=== PATIENT | female | born 1955 | race Caucasian/White ===

== ENCOUNTER 2016-12-14 17:50 | Emergency (ER) | payer OTHER ==
[2016-12-14 18:50] VITALS: BP 156/80
[2016-12-14] MEDS ORDERED: Ondansetron ODT TAB* 4 MG PO ONE (19:43)
[2016-12-14] MEDS ORDERED: NS 0.9% 1000 ML* 1,000 ML IV ONE (19:44)
[2016-12-14] MEDS ORDERED: HYDROcodone/ACETAMIN 5-325 MG* 1 TAB PO ONE (20:17)
--- NOTE | 2016-12-14 21:25 | UC ---
monica Luciano Timothy, scribed for Keysha Brown MD on 12/14/16 at 1903 . FLU HPI - HPI Summary HPI Summary: Sapna Dunham is a 61 yo female presenting to [facility] with vomiting and loose stool 3-4x since this morning, as well as subjective fever, myalgia, and temporal and frontal DOWNS. She states that DOWNS is not a new occurrence, and that she normally self-medicates with tylenol with codeine but has been unable to keep anything down. She states her had a "stomach bug" 12/09/16 and she has identical symptoms. She is requesting fluids. Pt has a right arm PICC line for long-term ABx Tx for Lyme disease. She takes prescription probiotics. She has a Hx of thyroid disease, dysautonomia, and asthma. She is on Florinef for the dysautonomia and is concerned that her electrolytes could be low too. - History of Current Complaint Stated Complaint: VOMITING Time Seen by Provider: 12/14/16 18:55 Hx Obtained From: Patient ?: No Onset/Duration: Sudden Onset, Lasting Hours, Still Present Severity Currently: Moderate Severity Initially: Moderate Associated Signs & Symptoms: Positive: Fever - subjective, Myalgia, Headache, Vomiting, Diarrhea Related Hx: Possible Flu/Infectious Exposure - Allergy/Home Medications Allergies/Adverse Reactions: Allergies Allergy/AdvReac Type Severity Reaction Status Date / Time Aspirin Allergy Mild Rash Verified 12/14/16 18:53 Ibuprofen Allergy Mild Rash Verified 12/14/16 18:53 Sulfa Drugs Allergy Mild Rash Verified 12/14/16 18:53 animals Allergy Intermediate Difficulty Uncoded 12/14/16 18:53 Breathing Home Medications: Home Medications Fludrocortisone Acetate TAB* [Florinef TAB*] 0.1 mg PO DAILY 12/14/16 [History Confirmed 12/14/16] PMH/Surg Hx/FS Hx/Imm Hx Previously Healthy: No - Lyme disease on daily ceftriaxone 2gms (did not take today) and azithro Endocrine History Of: Reports: Thyroid Disease Denies: Diabetes Cardiovascular History Of: Denies: Hypertension, Pacemaker/ICD Respiratory History Of: Reports: Asthma GI/ History Of: Denies: Renal Disease Cancer History Of: Denies: Breast Cancer - Surgical History Surgical History: Yes Surgery Procedure, Year, and Place: BREAST BIOPSY 15 YRS AGO,LEFT, - [facility]IGN. RT BREAST BIOPSY 02/2013 [facility] [place] - B[place]IGN. D&C - Family History Known Family History: Positive: Cardiac Disease, Diabetes, Other - lymphoma - mother - Social History Lives: With Family Alcohol Use: None Substance Use Type: None Smoking Status (MU): Never Smoked Tobacco - Immunization History Most Recent Tetanus Shot: 10 + yrs ago Review of Systems Constitutional: Fever - subjective Skin: Negative Eyes: Photophobia ENT: Negative Respiratory: Negative Cardiovascular: Negative Gastrointestinal: Vomiting, Diarrhea Genitourinary: Negative Motor: Negative Neurovascular: Negative Musculoskeletal: Negative Neurological: Headache Psychological: Negative All Other Systems Reviewed And Are Negative: Yes Physical Exam Triage Information Reviewed: Yes Appearance: No Pain Distress, Well-Nourished, Ill-Appearing Vital Signs: Initial Vital Signs Temp 99.2 F 12/14/16 18:47 Pulse 88 12/14/16 18:47 Resp 20 12/14/16 18:47 BP 156/80 12/14/16 18:47 Pulse Ox 98 12/14/16 18:47 Vital Signs Reviewed: Yes Eyes: Positive: Conjunctiva Clear ENT: Positive: Hearing grossly normal. Negative: Muffled/hoarse voice Neck: Positive: Supple, Nontender, No Lymphadenopathy Respiratory: Positive: Lungs clear, Normal breath sounds, No respiratory distress Cardiovascular: Positive: RRR, No Murmur, Pulses Normal, Brisk Capillary Refill Abdomen Description: Positive: Nontender, No Organomegaly, Soft. Negative: CVA Tenderness (R), CVA Tenderness (L), Distended, Guarding, McBurney's Point Tenderness, Peritoneal Signs, Pulsatile Mass Bowel Sounds: Positive: Present Musculoskeletal: Positive: Strength Intact, ROM Intact Neurological: Positive: Alert, Muscle Tone Normal Psychological Exam: Normal Skin Exam: Normal Re-Evaluation - Re-Evaluation First Eval Re-Evaluation Time: 19:42 Change: Unchanged Comment: Pt is still uncomfortable, but agreeable to peripheral line insertion. Second Eval Re-Evaluation Time: 20:35 Change: Improved Comment: Pt's is now in room. Pt is no longer nauseous, but still has a DOWNS. Third Eval Re-Evaluation Time: 21:02 Change: Improved Comment: Pt is feeling much better, her DOWNS is improving. Flu Course/Dx - Course Course Of Treatment: Sapna Dunham is a 61 yo female presenting to [facility] with fever, myalgia, DOWNS, vomiting, and diarrhea since this AM. She has a Hx of dysautonomia and Lyme disease currently on IV abx. After evaluation, blood will be drawn for lab work, she will be given one liter IVNS and she will be discharged home with instructions to follow up with Dr. Ross, whom she has seen in the past. Pt is advised that if the diarrhea continues to make sure she is checked for C difficile colitis. Pt does not have any respiratory symptoms so this does not present like influenza A or B, and pt has had her flu shot. - Differential Dx/Diagnosis Provider Diagnoses: gastroenteritis, mild dehydration - Physician Notifications Discussed Patient Care With: 1940 - Daya Duong ([facility]) - Discussed Pt condition with Director Ad. No credentialing @ [facility] necessary for Picc line use. Pt will have peripheral line inserted. Discharge - Discharge Plan Condition: Stable Disposition: HOME Patient Education Materials: Dehydration (ED), Gastroenteritis (ED) Referrals: Bob Ross MD [Primary Care Provider] - 2 Days Additional Instructions: Dr. Brown gave you a liter of normal saline IV through a peripheral IV in your left arm (not your PICC line). She also courtney a CBC and CMP and the results will be available tomorrow. The ER will call you if there is a critical value on the labs. Dr. Brown also gave you zofran 8mg ODT for nausea at 7:47pm and hydrocodone at 8:24pm. Follow up with Dr. Ross regarding your visit to urgent care within two days. Return to urgent care with any new or recurring symptoms. The documentation as recorded by the monica moser Timothy accurately reflects the service I personally performed and the decisions made by , Keysha Brown MD.
[2016-12-15 10:18] LABS: Hematocrit 39 % (35-47); Hemoglobin 12.8 g/dl (12.0-16.0); Mean Corpuscular HGB Conc 33 g/dl (31-36); Mean Corpuscular Hemoglobin 29 pg (27-31); Mean Corpuscular Volume 86 fL (80-97); Mean Platelet Volume 9 um3 (7.4-10.4); Red Blood Count 4.49 10^6/ul (4.0-5.4); Red Cell Distribution Width 14 % (10.5-15); White Blood Count 7.5 10^3/ul (3.5-10.8)
[2016-12-15 10:43] LABS: Albumin 3.9 g/dL (3.2-5.2); BUN/Creatinine Ratio 14.3 (8-20); Calcium 8.9 mg/dL (8.6-10.3); EGFR African American 110.1 (>60); EGFR Non-African American 85.6 (>60); Globulin 1.9 g/dL (2-4); Total Bilirubin 0.8 mg/dL (0.2-1.0); Total Protein 5.8 g/dL (6.4-8.9)
== END 2016-12-14 21:11 | disposition home or self-care (01) ==
LOC: UCEAST 17:50
DX: K52.9 Noninfective gastroenteritis and colitis, unspecified (principal); E86.0 Dehydration; Z88.6 Allergy status to analgesic agent; Z88.2 Allergy status to sulfonamides; R50.9 Fever, unspecified
CPT/HCPCS: 36415; 80053; 81002; 85025; 87086; 96360; 99212; A9270-GY; G0463

== ENCOUNTER 2017-02-21 22:58 | Emergency (ER) | payer OTHER ==
[2017-02-22 00:32] LABS: Hematocrit 37 % (35-47); Hemoglobin 12.2 g/dl (12.0-16.0); Mean Corpuscular HGB Conc 33 g/dl (31-36); Mean Corpuscular Hemoglobin 28 pg (27-31); Mean Corpuscular Volume 84 fL (80-97); Mean Platelet Volume 9 um3 (7.4-10.4); Red Blood Count 4.35 10^6/ul (4.0-5.4); Red Cell Distribution Width 15 % (10.5-15); White Blood Count 8.2 10^3/ul (3.5-10.8)
--- NOTE | 2017-02-22 00:33 | ED ---
Mod[place] Luciano Billy, scribed for Judah Munoz MD on 02/22/17 at 0003 . HPI Chest Pain - HPI Summary HPI Summary: Patient is a 61 y/o female coming to [facility] with intermittent midsternal chest pain since yesterday. Severity 2/10. She is unable to specifically describe the character of her pain. Nothing makes symptoms better or worse. Patient has a PICC in [facility] to treat Lyme disease. - History of Current Complaint Chief Complaint: EDChestPainROMI Time Seen by Provider: 02/21/17 23:45 Hx Obtained From: Patient Onset/Duration: Started Days Ago, Still Present Timing: Intermittent Initial Severity: Moderate Current Severity: Moderate Pain Intensity: 2 Pain Scale Used: 0-10 Numeric Chest Pain Location: Mid Sternal Chest Pain Radiates: No Aggravating Factor(s): Nothing Alleviating Factor(s): Nothing Associated Signs and Symptoms: Positive: Chest Pain. Negative: Fever - Allergy/Home Medications Allergies/Adverse Reactions: Allergies Allergy/AdvReac Type Severity Reaction Status Date / Time Aspirin Allergy Mild Rash Verified 02/21/17 23:04 Ibuprofen Allergy Mild Rash Verified 02/21/17 23:04 Sulfa Drugs Allergy Mild Rash Verified 02/21/17 23:04 animals Allergy Intermediate Difficulty Uncoded 02/21/17 23:04 Breathing PMH/Surg Hx/FS Hx/Imm Hx Endocrine/Hematology History: Reports: Hx Thyroid Disease Denies: Hx Diabetes Cardiovascular History: Denies: Hx Hypertension, Hx Pacemaker/ICD Respiratory History: Reports: Hx Asthma History: Denies: Hx Dialysis, Hx Renal Disease Sensory History: Denies: Hx Hearing Aid Psychiatric History: Denies: Hx Panic Disorder - Cancer History Hx Chemotherapy: No Hx Radiation Therapy: No - Surgical History Surgery Procedure, Year, and Place: BREAST BIOPSY 15 YRS AGO,LEFT, - [place]IGN. RT BREAST [place] 02/[place] [facility] [place] D&C Infectious Disease History: No Infectious Disease History: Denies: Traveled Outside the [place] in Last 30 Days - Family History Known Family History: Positive: Cardiac Disease, Diabetes, Other - lymphoma - mother - Social History Alcohol Use: None Substance Use Type: Reports: None Smoking Status (MU): Never Smoked Tobacco Review of Systems Negative: Fever Positive: Chest Pain All Other Systems Reviewed And Are Negative: Yes Physical Exam Triage Information Reviewed: Yes Vital Signs On Initial Exam: Initial Vitals Temp Pulse Resp BP Pulse Ox 97.3 F 64 15 155/88 99 02/21/17 23:00 02/21/17 23:00 02/21/17 23:00 02/21/17 23:00 02/21/17 23:00 Vital Signs Reviewed: Yes Appearance: Positive: No Pain Distress, Thin Skin: Positive: Warm Head/Face: Positive: Normal Head/Face Inspection Eyes: Positive: VÍCTOR ENT: Positive: Hearing grossly normal Neck: Positive: Supple Respiratory/Lung Sounds: Positive: Breath Sounds Present Cardiovascular: Positive: RRR Abdomen Description: Positive: Nontender, Soft Bowel Sounds: Positive: Present Neurological: Positive: Sensory/Motor Intact, Alert, Oriented to Person Place, Time Diagnostics - Vital Signs Vital Signs Temp Pulse Resp BP Pulse Ox 02/21/17 23:00 97.3 F 64 15 155/88 99 - Laboratory Result Diagrams: 02/22/17 00:10 02/22/17 00:10 Lab Statement: Any lab studies that have been ordered have been reviewed, and results considered in the medical decision making process. - Radiology CXR Xray Interpretation: No Acute Changes Radiology Interpretation Completed By: ED Physician - EKG 2311 EKG Interpretation: sinus bradycardia 57 bpm, no ST elevations Re-Evaluation - Re-Evaluation First Eval Change: Improved - results d/w pt Chest Pain Course/Dx - Diagnoses Provider Diagnoses: Chest pain Discharge - Discharge Plan Condition: Stable Disposition: HOME Patient Education Materials: Chest Pain (ED) Referrals: Bob Ross MD [Primary Care Provider] - The documentation as recorded by the Modesto moser Billy accurately reflects the service I personally performed and the decisions made by , Judah Munoz MD.
[2017-02-22 00:43] LABS: Albumin 4.1 g/dL (3.2-5.2); BUN/Creatinine Ratio 22.5 (8-20); Calcium 9.2 mg/dL (8.6-10.3); EGFR African American 108.4 (>60); EGFR Non-African American 84.3 (>60); Globulin 2.5 g/dL (2-4); Potassium 3.4 mmol/L (3.5-5.0); Total Bilirubin 0.3 mg/dL (0.2-1.0); Total Protein 6.6 g/dL (6.4-8.9)
[2017-02-22 01:41] VITALS: BP 147/89
--- NOTE | 2017-02-22 07:41 | RAD ---
INDICATION: Chest pain, status post PICC placement. COMPARISON: There are no prior studies available for comparison. TECHNIQUE: Dual-energy PA and lateral views of the chest were obtained. FINDINGS: The heart is within normal limits in size. Mediastinal and hilar contours appear within normal limits. There is a PICC present entering on the right side. The catheter tip projects over the region of the superior vena cava. The lungs are clear. No pleural effusion is present. IMPRESSION: NO EVIDENCE FOR ACTIVE CARDIOPULMONARY DISEASE.
== END 2017-02-22 01:40 | disposition home or self-care (01) ==
LOC: ED 22:58
DX: R07.9 Chest pain, unspecified (principal)
CPT/HCPCS: 36415; 71020; 80053; 85025; 85379; 93005; 99282

== ENCOUNTER 2018-05-29 02:43 | Emergency (ER) | payer MEDICARE, OTHER ==
[2018-05-29] MEDS ORDERED: Ondansetron INJ* 2 MG/ML VIAL IV ONE (03:03)
[2018-05-29] MEDS ORDERED: NS 0.9% 1000 ML* 1,000 ML IV ONE ×2 (03:03→06:33)
--- OUTSIDE RECORDS SUMMARY | 2018-05-29 03:03 | XMS REPORT ---
:1955 External Reference #:[id number] 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 Bob Ross MD Primary Care Physician Unavailable Payers Type Date Identification Numbers Payment Provider Subscriber Medicare Primary Policy Number: [id number] Medicare Sapna Dunham PayID: [id number] [address] [place] [address] Commercial Policy Number: [id number] [employer] Sapna Dunham Group Number: [id number] [address] PayID: [id number] [place] [address] [place] Part [place] Expires: 2017 Policy Number: [employer] Sapna Dunham [id number] Group Number: [id number] [address] Group Name: [place] [address] PayID: [id number] Problems Date Description Provider Status Onset: 02/17/2016 Autonomic dysreflexia Mary Beth Avendaño M.D. Active Onset: 02/17/2016 Spinal stenosis Mary Beth Avendaño M.D. Active Onset: 02/17/2016 Dyspnea Mary Beth Avendaño M.D. Active Onset: 02/17/2016 Chest pain Mary Beth Avendaño M.D. Active Onset: 07/21/2016 Supraventricular premature beats Mary Beth Avendaño M.D. Active Onset: 02/12/2017 Palpitations Mary Beth Avendaño M.D. 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 Cigarette Use Never Smoked Cigarettes ETOH Use Occasionally consumes alcohol Smoking Patient has never smoked Recreational Drug Use Formerly used Marijuana sporadically Daily Caffeine Consumes on average 3 cups of hot tea per day Daily Caffeine consumes chocolate occasionally Exercise Type/Frequency Exercises rarely Allergies, Adverse Reactions, Alerts Date Description Reaction Status Severity Comments 02/17/2016 Ibuprofen active rash 02/17/2016 Synthroid active rash 02/17/2016 Vicodin active rash 02/17/2016 Eggs or Egg-derived active rash Products 10/16/2016 Lactose (Intolerance) diarrhea active 03/25/2017 Atavaquone active 03/25/2017 Advil active 04/22/2017 Peppermint Oil Urticaria active massage 04/08/17 per patient 07/16/2017 Keshav rash active Medications Medication Date Status Form Strength Qnty SIG Indications Ordering Provider Edmundo 10 07/16 Active Tablets ER 10Meq 180ta 2 tablets bs by mouth [place], every day M.D. Mobic 03/25 Active Tablets 7.5mg 30tab 1 by Carolyn s mouth Harris, every day M.D. (Not Taking) Compression 03/26 Active Misc 1Pair thigh G90.4 high [place], closed M.D. toe medium compressi on 20-30mmHg Tylenol With Active Tablets 300-30mg 1 tablet Unknown Codeine #3 /0000 by mouth every 8 hours as needed Fluoxetine HCL Active Capsules 10mg 2 Unknown /0000 capsules po daily PM ( increase 2 months ago) Proventil HFA Active Aerosol 108(90Bas 2 puffs Unknown 0000 e) by mouth mcg/Act every 4 hours as needed Fludrocortisone Active Tablets 0.1mg 60tab 1 by Mary Beth s mouth [place], twice a M.D. day (pt requires childers manufactu ror due to lactose intoleran ce)Taking 1 and 3/4 per daily) Multi Vitamin Active Tablets 1 po Unknown Centrum Women 50+ /0000 daily Vitamin C Active 1 daily Unknown /0000 Levothyroxine Active Solution 125mcg once a Unknown Sodium /0000 Rec day VSL#3 Probiotic Active Capsules 1-2 Unknown /0000 packets per day Zyrtec Allergy Active Tablets 10mg 1 by Unknown /0000 mouth every day as needed Vitamin D3 Active Tablets 1000Unit 1 by Unknown /0000 mouth every day Rifampin Active Capsules 150mg 2 cap by Unknown /0000 mouth twice daily ( alternate every other month with Atavaquon e) As April [address] Garcia) Liothyronine Active Tablets 5mcg Take 1 Unknown Sodium /0000 Tablet By Mouth Two Times Daily Atavaquone Active 1 tsp Unknown 0000 twice daily ( alternate s every other month with Rifampin) As of April 2018 this is On Hold ( Dr. Garcia) Hydroxychloroquin Active Tablets 200mg Take 1 Unknown e Sulfate / Tablet By Mouth 1-2 Times Daily ( Dr. Garcia) Minocycline HCL Active Tablets 100mg 1 tablet Unknown /0000 po twice daily ( Dr. Garcia) Sublingual Active 1 SL once Unknown Immunotherapy For /0000 per day Allergies Klor-Con M20 02/22 Hx Tablets ER 20Meq 90tab 1 by Mary Beth s mouth [place], - every day M.D. 07/16 Klor-Con 10 02/11 Hx Tablets ER 10Meq 90tab 2 tablets s by mouth [place], - every day M.D. 02/22 Rocephin 07/21 Hx Solution 1gm 7unit 2 gram IV Mary Beth Rec s daily Jarocho, - M.D. 05/02 Midodrine HCL 03/16 Hx Tablets 5mg 90tab 1/2 tab G90.4 s by mouth Jarocho, - two times M.D. 10/01 a day Atenolol Hx Tablets 25mg 1/2 by Unknown /0000 mouth - every 03/05 day, stopped taking on 02/13/16 Levothyroxine Hx Tablets 100mcg 1 by Unknown Sodium /0000 mouth - every day 02/16 Famotidine Hx Tablets 20mg take one Unknown /0000 tablet by - mouth 10/01 twice a day Advair Diskus Hx Aerosol 500-50mcg inhale 2 Unknown /0000 /Dose dose by - mouth 06/20 daily Montelukast Hx Tablets 10mg 1 by Unknown Sodium /0000 mouth - every day 10/01 Zyrtec Allergy Hx Capsules 10mg 1 by Unknown /0000 mouth - every day 03/04 Immunotherapy Hx Sublingual 1 daily Unknown - 06/30 Vitamin D Hx 1 daily Unknown (Cholecalciferol) / - 06/20 Fish Oil Hx 1 daily Unknown - 05/02 Alpha Lipoic Acid Hx Capsules 200mg daily Unknown / - 03/05 Green Tea Extract Hx Capsules 150mg Unknown / - 03/04 Digestive Enzymes Hx Capsules daily Unknown / with - meals prn 06/30 Probiotic Hx Capsules 1 by Unknown /0000 mouth - once a 06/30 day pr Prozac Hx Tabs 1 1/2 Unknown / tabs by - mouth 10/01 Coartem Hx Tablets 20-120mg 3 days a Unknown /0000 week - 05/02 Zithromax Hx Tablets 250mg one by Unknown /0000 mouth - every 05/02 other Medications Administered in Office Medication Date Status Form Strength Qnty SIG Indications Ordering Provider Inj, Administered Injection Reuben S. Regadenoson, 016 Clemons, 0.1 MG FACC Inj, Administered Injection Mary Beth Regadenoson, 016 Jarocho, 0.1 MG M.D. Technetium TC Administered Injection Reuben S. 99M 016 Clemons, DO Tetrofosmin, FACC Per Unit Dose Up To 40 Millicuries Technetium TC Administered Injection Mary Beth 99M 016 [place], Tetrofosmin, M.D. Per Unit Dose Up To 40 Millicuries Vital Signs Date Vital Result Comment 05/03/2018 Height 65.50 inches 5'5.50" Weight 160.00 lb without shoes Heart Rate 80 /min BP Systolic Sitting 120 mmHg Lue reg cuff BP Diastolic Sitting 80 mmHg Lue reg cuff BP Systolic Standing 112 mmHg Lue reg cuff BP Diastolic Standing 80 mmHg Lue reg cuff Respiratory Rate 16 /min BMI (Body Mass Index) 26.2 kg/m2 Ejection Fraction 60-65% date 02/25/16 ECHO 07/16/2017 Height 64.5 inches 5'4.50" Weight 161.00 lb Heart Rate 84 /min BP Systolic Sitting 128 mmHg Lue reg cuff BP Diastolic Sitting 80 mmHg Lue reg cuff BP Systolic Standing 128 mmHg Lue BP Diastolic Standing 78 mmHg Lue Respiratory Rate 14 /min BMI (Body Mass Index) 27.2 kg/m2 Ejection Fraction 60-65% 02/25/16 04/22/2017 Height 64.5 inches 5'4.50" Weight 164.00 lb without shoes Heart Rate 62 /min BP Systolic Sitting 150 mmHg Lue reg cuff BP Diastolic Sitting 70 mmHg Lue reg cuff BP Systolic Standing 140 mmHg Lue reg cuff BP Diastolic Standing 80 mmHg Lue reg cuff Respiratory Rate 16 /min BMI (Body Mass Index) 27.7 kg/m2 Ejection Fraction 60-65% date 02/25/2016 ECHO 03/25/2017 Height 64.5 inches 5'4.50" Weight 162.00 lb BP Systolic 110 mmHg BP Diastolic 65 mmHg Respiratory Rate 16 /min Body Temperature 97.9 F Pain Level 2 BMI (Body Mass Index) 27.4 kg/m2 02/12/2017 Height 65 inches 5'5" Weight 169.00 lb w/ shoes Heart Rate 60 /min reg BP Systolic Sitting 140 mmHg Lue, reg cuff BP Diastolic Sitting 94 mmHg Lue, reg cuff BP Systolic Standing 136 mmHg Lue BP Diastolic Standing 94 mmHg Lue Respiratory Rate 16 /min BMI (Body Mass Index) 28.1 kg/m2 Ejection Fraction 60-65% as of 02/25/16 echo 10/16/2016 Height 65 inches 5'5" Weight 164.00 lb with shoes Heart Rate 66 /min BP Systolic Sitting 134 mmHg Rue reg cuff BP Diastolic Sitting 70 mmHg Rue reg cuff BP Systolic Standing 130 mmHg Rue reg cuff BP Diastolic Standing 80 mmHg Rue reg cuff Respiratory Rate 17 /min BMI (Body Mass Index) 27.3 kg/m2 Ejection Fraction 60-65% date 02/25/16 ECHO 10/02/2016 Height 65 inches 5'5" Weight 161.12 lb with shoes Heart Rate 66 /min BP Systolic Sitting 130 mmHg Ra reg cuff BP Diastolic Sitting 78 mmHg Ra reg cuff BP Systolic Standing 122 mmHg Ra reg cuff BP Diastolic Standing 82 mmHg Ra reg cuff BMI (Body Mass Index) 26.8 kg/m2 Ejection Fraction 60% - 65% 02/25/16 echo 07/21/2016 Height 65 inches 5'5" Weight 159.00 lb w/ shoes Heart Rate 66 /min reg BP Systolic Sitting 136 mmHg Lue, reg cuff BP Diastolic Sitting 86 mmHg Lue, reg cuff BP Systolic Standing 132 mmHg Lue BP Diastolic Standing 86 mmHg Lue Respiratory Rate 16 /min BMI (Body Mass Index) 26.5 kg/m2 Ejection Fraction 60-65% as of 02/25/16 echo 04/15/2016 Height 65 inches 5'5" Weight 162.00 lb w/o shoes Heart Rate 58 /min reg BP Systolic Sitting 142 mmHg Lue, reg cuff BP Diastolic Sitting 80 mmHg Lue, reg cuff BP Systolic Standing 132 mmHg Lue BP Diastolic Standing 86 mmHg Lue Respiratory Rate 16 /min BMI (Body Mass Index) 27.0 kg/m2 Ejection Fraction 60-65% as of 02/25/16 echo 03/26/2016 Height 65 inches 5'5" Weight 162.00 lb with shoes Heart Rate 60 /min BP Systolic Sitting 140 mmHg Ra reg cuff BP Diastolic Sitting 80 mmHg Ra reg cuff BP Systolic Standing 134 mmHg Ra reg cuff BP Diastolic Standing 76 mmHg Ra reg cuff Respiratory Rate 16 /min BMI (Body Mass Index) 27.0 kg/m2 Ejection Fraction 60-65% date 02/25/16 ECHO 03/16/2016 Height 65 inches 5'5" Weight 161.00 lb Heart Rate 72 /min BP Systolic Sitting 140 mmHg LA reg cuff BP Diastolic Sitting 90 mmHg LA reg cuff BP Systolic Standing 136 mmHg LA BP Diastolic Standing 90 mmHg LA Respiratory Rate 16 /min BMI (Body Mass Index) 26.8 kg/m2 Ejection Fraction 60-65% 02/25/16 02/17/2016 Height 65 inches 5'5" Weight 161.00 lb with shoes Heart Rate 68 /min BP Systolic 120 mmHg Ra reg cuff BP Diastolic 72 mmHg Ra reg cuff BP Systolic Sitting 120 mmHg La reg cuff BP Diastolic Sitting 78 mmHg La reg cuff BP Systolic Standing 120 mmHg La reg cuff BP Diastolic Standing 80 mmHg La reg cuff Respiratory Rate 17 /min BMI (Body Mass Index) 26.8 kg/m2 02/25/2011 Height 66 inches 5'6" Weight 150.00 lb Heart Rate 65 /min BP Systolic 87 mmHg BP Diastolic 63 mmHg BMI (Body Mass Index) 24.2 kg/m2 Results Test Date Test Result H/L Range Note Comp Metabolic Panel 03/26/2017 Sodium 137 mmol/L 133-145 Potassium 4.1 mmol/L 3.5-5.0 Chloride 102 mmol/L 101-111 Co2 Carbon Dioxide 29 mmol/L 22-32 Anion Gap 6 mmol/L 2-11 Glucose 96 mg/dL 70-100 Blood Urea Nitrogen 14 mg/dL 6-24 Creatinine 0.74 mg/dL 0.51-0.95 BUN/Creatinine Ratio 18.9 8-20 Calcium 9.1 mg/dL 8.6-10.3 Total Protein 6.5 g/dL 6.4-8.9 Albumin 4.1 g/dL 3.2-5.2 Globulin 2.4 g/dL 2-4 Albumin/Globulin Ratio 1.7 1-3 Total Bilirubin 0.40 mg/dL 0.2-1.0 Alkaline Phosphatase 58 U/L 34-104 Alt 25 U/L 7-52 Ast 21 U/L 13-39 Egfr Non- 80.3 >60 Egfr 103.3 >60 1 CBC No Diff 03/26/2017 White Blood Count 5.3 10^3/uL 3.5-10.8 Red Blood Count 4.38 10^6/uL 4.0-5.4 Hemoglobin 12.1 g/dL 12.0-16.0 Hematocrit 37 % 35-47 Mean Corpuscular Volume 84 fL 80-97 Mean Corpuscular Hemoglobin 28 pg 27-31 Mean Corpuscular HGB Conc 33 g/dL 31-36 Red Cell Distribution Width 15 % 10.5-15 Platelet Count 252 10^3/uL 150-450 Mean Platelet Volume 9 um3 7.4-10.4 Basic Metabolic Panel 02/19/2017 Sodium 139 mmol/L 133-145 Potassium 3.5 mmol/L 3.5-5.0 Chloride 99 mmol/L Low 101-111 Co2 Carbon Dioxide 33 mmol/L High 22-32 Anion Gap 7 mmol/L 2-11 Glucose 90 mg/dL 70-100 Blood Urea Nitrogen 10 mg/dL 6-24 Creatinine 0.77 mg/dL 0.51-0.95 BUN/Creatinine Ratio 13.0 8-20 Calcium 9.7 mg/dL 8.6-10.3 Egfr Non- 76.7 >60 Egfr 98.7 >60 2 1 Because ethnic data is not always readily available, this report includes an eGFR for both -Americans and non- Americans. The National Kidney Disease Education Program (NKDEP) does not endorse the use of the MDRD equation for patients that are not between the ages of 18 and 70, are , have extremes of body size, muscle mass, or nutritional status, or are non- or non-. According to the National Kidney Foundation, irrespective of diagnosis, the stage of the disease is based on the level of kidney function: Stage Description GFR(mL/min/1.73 m(2)) 1 Kidney damage with normal or decreased GFR 90 2 Kidney damage with mild decrease in GFR 60-89 3 Moderate decrease in GFR 30-59 4 Severe decrease in GFR 15-29 5 Kidney failure <15 (or dialysis) 2 Because ethnic data is not always readily available, this report includes an eGFR for both -Americans and non- Americans. The National Kidney Disease Education Program (NKDEP) does not endorse the use of the MDRD equation for patients that are not between the ages of 18 and 70, are , have extremes of body size, muscle mass, or nutritional status, or are non- or non-. According to the National Kidney Foundation, irrespective of diagnosis, the stage of the disease is based on the level of kidney function: Stage Description GFR(mL/min/1.73 m(2)) 1 Kidney damage with normal or decreased GFR 90 2 Kidney damage with mild decrease in GFR 60-89 3 Moderate decrease in GFR 30-59 4 Severe decrease in GFR 15-29 5 Kidney failure <15 (or dialysis) Procedures Date CPT Code Description Status 05/03/2018 37890 EKG Tracing & Interpretation Completed 02/12/2017 83336 EKG Tracing & Interpretation Completed 10/08/2016 86039 Holter Monitor Review (24 hr)dr review & interp only Completed 10/05/2016 70975 ECG Monitor/Recording W/Visual Superimposition Scanning Completed 10/02/2016 20074 EKG Tracing & Interpretation Completed 07/24/2016 05272 EKG Tracing & Interpretation Completed 07/21/2016 42318 EKG Tracing & Interpretation Completed 03/12/2016 65833 Holter Monitor Review (24 hr)dr review & interp only Completed 03/10/2016 17321 Myocardial Perfusion Imaging Tomographic (Spect) Completed Multiple Studies 03/10/2016 36824 Myocardial Perfusion Imaging Tomographic (Spect) Completed Multiple Studies 03/10/2016 01629 Stress Test Completed 03/10/2016 42954 ECG Monitor/Recording W/Visual Superimposition Scanning Completed 03/10/2016 43919 ECG Monitor/Recording W/Visual Superimposition Scanning Completed 02/25/2016 42738 ECHO Transthoracic, Real-Time 2D With Doppler And Color Completed Flow 02/17/2016 19629 EKG Tracing & Interpretation Completed 05/25/2011 46883 Rad Exam; Foot Limited Completed 02/25/2011 97208 Rad Exam; Ankle Comp Completed Encounters Type Date Location Provider CPT E/M Dx Office Visit 07/16/2017 10:30a [facility] Mary Beth Avendaño M.D. 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 RPA-C M18.12 M18.0 Office Visit 02/12/2017 9:00a [facility] Temo Avendaño M.D. 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 14185 R07.2 Senior Sales Operations Analyst AT [facility] [place] R00.2 G90.4 Office Visit 07/21/2016 1:30p [facility] Mary Beth Avendaño M.D. 01732 G90.4 [facility] I49.1 Office Visit 04/15/2016 2:00p [facility] Mary Beth Avendaño M.D. 86900 G90.4 [facility] R00.2 I95.1 Office Visit 03/26/2016 10:00a [facility] MARIANELA Yuan 01486 G90.4 R06.02 Office Visit 03/16/2016 2:45p [facility] Mary Beth Avendaño M.D. 75418 G90.4 [facility] R00.2 Office Visit 02/17/2016 10:00a [facility] Mary Beth Avendaño M.D. 06157 G90.4 [facility] M48.00 R06.02 R07.9 R00.2 R01.1 Office Visit 05/25/2011 9:30a [facility] Danny Judge 28351 726.79 Of [employer] Office Visit 03/04/2011 9:45a [facility] Herve Vang M.D. 86103 726.72 Of [place] Office Visit 02/25/2011 1:30p [facility] Herve Vang M.D. 46137 726.72 Of [place] Plan of Care Future Appointment(s):06/24/2018 10:30 am - Mary Beth Avendaño M.D. at [facility]05/12/2018 1:00 pm - [facility] ECHO Schedule at [facility]05/03/2018 - Mary Beth Avendaño M.D.A69.20 Lyme disease, kulnzewizppQ49.4 Autonomic dysreflexiaComments:Keep a log of heart pounding events, dates and times and symptoms.Option of event monitor in [facility] future.Follow up:Check BP lying down (today in office)R07.2 Precordial painR00.2 XzszhdtbvvbxK45.1 Cardiac murmur, unspecifiedNew Orders:EchocardiogramFollow up:after testing
[2018-05-29] MEDS ORDERED: NS 0.9% 1000 ML* 1,000 ML IV SCH (03:15)
[2018-05-29 03:34] LABS: ABS Basophils 0 10^3/ul (0-0.2); ABS Eosinophils 0.1 10^3/ul (0-0.6); ABS Lymphocytes 0.4 10^3/ul (1.0-4.8); ABS Monocytes 0.2 10^3/ul (0-0.8); ABS Neutrophils 8.5 10^3/ul (1.5-7.7); ABS Nucleated RBC 0 10^3/ul; Eosinophil % 0.7 % (0-6); Hematocrit 38 % (35-47); Hemoglobin 12.8 g/dl (12.0-16.0); Lymphocyte % 4.2 % (25-47); Mean Corpuscular HGB Conc 34 g/dl (31-36); Mean Corpuscular Hemoglobin 30 pg (27-31); Mean Corpuscular Volume 89 fL (80-97); Mean Platelet Volume 8.7 um3 (7.4-10.4); Nucleated Red Blood Cells % 0; Platelet Count 223 10^3/ul (150-450); Red Blood Count 4.28 10^6/ul (4.00-5.40); Red Cell Distribution Width 13 % (10.5-15); White Blood Count 9.2 10^3/ul (3.5-10.8)
[2018-05-29 03:44] LABS: INR 1.03 (0.77-1.02)
[2018-05-29 03:50] LABS: EGFR Non-African American 88.3 (>60)
[2018-05-29 05:11] LABS: Urine Appearance Clear; Urine Blood Negative (Negative); Urine Color Yellow; Urine Ketones Negative (Negative); Urine Protein Negative (Negative); Urine Specific Gravity 1.014 (1.010-1.030); Urine Urobilinogen Negative (Negative)
[2018-05-29] MEDS ORDERED: Iohexol 300* (CONTRAST) 10 ML SDV IV ONE (05:21)
[2018-05-29] MEDS ORDERED: Metoclopramide IV* 5 MG/ML 2 ML VIAL IV ONE (05:27)
[2018-05-29] MEDS ORDERED: Metoclopramide IV* 5 MG/ML 2 ML VIAL ONE (05:29)
[2018-05-29] MEDS ORDERED: Acetaminophen TAB* 325 MG PO ONE (05:35)
--- NOTE | 2018-05-29 06:44 | ED ---
Al Luciano Rebecca, scribed for SharmilaDe on 05/29/18 at 0304 . Abdominal Pain/Female - HPI Summary HPI Summary: Pt is a 62 y/o F who presents to ED c/o abdominal pain with N/V/D since 2299. Pain is currently moderate, ranked 5/10 and characterized as cramping. Additionally c/o DOWNS. Denies fever, CP, SOB. Reports that she has eaten the same food as her who is not currently ill. - History of Current Complaint Chief Complaint: EDNauseaVomitDiarrh Stated Complaint: VOMITING/DIARRHEA Time Seen by Provider: 05/29/18 02:58 Hx Obtained From: Patient Onset/Duration: Lasting Hours, Still Present Severity Currently: Moderate Pain Intensity: 5 Pain Scale Used: 0-10 Numeric Character: Cramping Aggravating Factor(s): Nothing Alleviating Factor(s): Nothing Associated Signs and Symptoms: Positive: Nausea, Vomiting, Diarrhea. Negative: Fever Allergies/Adverse Reactions: Allergies Allergy/AdvReac Type Severity Reaction Status Date / Time aspirin Allergy Rash Verified 05/29/18 02:53 ibuprofen Allergy Rash Verified 05/29/18 02:53 Sulfa (Sulfonamide Allergy Rash Verified 05/29/18 02:53 Antibiotics) animals Allergy Intermediate Difficulty Uncoded 02/21/17 23:04 Breathing Home Medications: Home Medications FLUoxetine CAP* [PROzac CAP*] 10 mg PO DAILY 05/29/18 [History Confirmed ] Levothyroxine TAB* [Synthroid TAB*] 125 mcg PO DAILY 05/29/18 [History Confirmed 05/29/18] Liothyronine TAB* [Cytomel TAB*] 5 mcg PO BID 05/29/18 [History Confirmed ] Minocycline HCl 200 mg PO DAILY 05/29/18 [History Confirmed 05/29/18] RiFAMPin CAP* 300 mg PO BID 05/29/18 [History Confirmed 05/29/18] PMH/Surg Hx/FS Hx/Imm Hx Endocrine/Hematology History: Reports: Hx Thyroid Disease Denies: Hx Diabetes Cardiovascular History: Denies: Hx Hypertension, Hx Pacemaker/ICD Respiratory History: Reports: Hx Asthma History: Denies: Hx Dialysis, Hx Renal Disease Sensory History: Denies: Hx Hearing Aid Psychiatric History: Denies: Hx Panic Disorder - Cancer History Hx Chemotherapy: No Hx Radiation Therapy: No - Surgical History Surgery Procedure, Year, and Place: BREAST BIOPSY 15 YRS AGO,LEFT, - [place]. [place] BREAST [place] 02[place] [facility] [place] D&C Infectious Disease History: No Infectious Disease History: Denies: Traveled Outside the [place] in Last 30 Days - Family History Known Family History: Positive: Cardiac Disease, Diabetes, Other - lymphoma - mother - Social History Alcohol Use: None Substance Use Type: Reports: None Smoking Status (MU): Never Smoked Tobacco Review of Systems Negative: Fever Positive: Abdominal Pain, Vomiting, Diarrhea, Nausea Positive: Headache All Other Systems Reviewed And Are Negative: Yes Physical Exam - Summary Physical Exam Summary: Appearance: Well appearing, no pain distress Skin: warm, dry, reflects adequate perfusion Head/face: normal Eyes: EOMI, VÍCTOR ENT: dry mucous membranes Neck: supple, non-tender Respiratory: CTA, breath sounds present Cardiovascular: RRR, pulses symmetrical Abdomen: diffuse abdominal tenderness, soft Bowel: present Musculoskeletal: normal, strength/ROM intact Neuro: normal, sensory motor intact, A&Ox3 Triage Information Reviewed: Yes Vital Signs On Initial Exam: Initial Vitals Temp Pulse Resp BP Pulse Ox 98.7 F 99 20 125/100 100 05/29/18 02:50 05/29/18 02:50 05/29/18 02:50 05/29/18 02:50 05/29/18 02:50 Vital Signs Reviewed: Yes Diagnostics - Vital Signs Vital Signs Temp Pulse Resp BP Pulse Ox 05/29/18 02:50 98.7 F 99 20 125/100 100 - Laboratory Lab Results: Lab Results 05/29/18 05/29/18 05/29/18 Range/Units 03:25 03:25 03:25 WBC 9.2 (3.5-10.8) 10^3/ul RBC 4.28 (4.00-5.40) 10^6/ul Hgb 12.8 (12.0-16.0) g/dl Hct 38 (35-47) % MCV 89 (80-97) fL MCH 30 (27-31) pg MCHC 34 (31-36) g/dl RDW 13 (10.5-15) % Plt Count 223 (150-450) 10^3/ul MPV 8.7 (7.4-10.4) um3 Neut % (Auto) 92.1 H (38-83) % Lymph % (Auto) 4.2 L (25-47) % [place] % (Auto) 2.6 (0-7) % Eos % (Auto) 0.7 (0-6) % Baso % (Auto) 0.4 (0-2) % Absolute Neuts (auto) 8.5 H (1.5-7.7) 10^3/ul Absolute Lymphs (auto) 0.4 L (1.0-4.8) 10^3/ul Absolute Monos (auto) 0.2 (0-0.8) 10^3/ul Absolute Eos (auto) 0.1 (0-0.6) 10^3/ul Absolute Basos (auto) 0 (0-0.2) 10^3/ul Absolute Nucleated RBC 0 10^3/ul Nucleated RBC % 0 INR (Anticoag Therapy) 1.03 H (0.77-1.02) APTT 27.2 (26.0-36.3) seconds Sodium 136 (135-145) mmol/L Potassium 3.6 (3.5-5.0) mmol/L Chloride 103 (101-111) mmol/L Carbon Dioxide 26 (22-32) mmol/L Anion Gap 7 (2-11) mmol/L BUN 16 (6-24) mg/dL Creatinine 0.68 (0.51-0.95) mg/dL Est GFR ( Amer) 106.8 (>60) Est GFR (Non-Af Amer) 88.3 (>60) BUN/Creatinine Ratio 23.5 H (8-20) Glucose 135 H (70-100) mg/dL Calcium 8.7 (8.6-10.3) mg/dL Total Bilirubin 0.50 (0.2-1.0) mg/dL AST 14 (13-39) U/L ALT 14 (7-52) U/L Alkaline Phosphatase 56 (34-104) U/L Troponin I 0.00 (<0.04) ng/mL Total Protein 6.1 L (6.4-8.9) g/dL Albumin 3.7 (3.2-5.2) g/dL Globulin 2.4 (2-4) g/dL Albumin/Globulin Ratio 1.5 (1-3) Lipase 85 H (11.0-82.0) U/L Urine Color Urine Appearance Urine pH (5-9) Ur Specific [place] (1.010-1.030) Urine Protein (Negative) Urine Ketones (Negative) Urine Blood (Negative) Urine Nitrate (Negative) Urine Bilirubin (Negative) Urine Urobilinogen (Negative) Ur Leukocyte Esterase (Negative) Urine Glucose (Negative) 05/29/18 Range/Units 04:54 WBC (3.5-10.8) 10^3/ul RBC (4.00-5.40) 10^6/ul Hgb (12.0-16.0) g/dl Hct (35-47) % MCV (80-97) fL MCH (27-31) pg MCHC (31-36) g/dl RDW (10.5-15) % Plt Count (150-450) 10^3/ul MPV (7.4-10.4) um3 Neut % (Auto) (38-83) % Lymph % (Auto) (25-47) % [place] % (Auto) (0-7) % Eos % (Auto) (0-6) % Baso % (Auto) (0-2) % Absolute Neuts (auto) (1.5-7.7) 10^3/ul Absolute Lymphs (auto) (1.0-4.8) 10^3/ul Absolute Monos (auto) (0-0.8) 10^3/ul Absolute Eos (auto) (0-0.6) 10^3/ul Absolute Basos (auto) (0-0.2) 10^3/ul Absolute Nucleated RBC 10^3/ul Nucleated RBC % INR (Anticoag Therapy) (0.77-1.02) APTT (26.0-36.3) seconds Sodium (135-145) mmol/L Potassium (3.5-5.0) mmol/L Chloride (101-111) mmol/L Carbon Dioxide (22-32) mmol/L Anion Gap (2-11) mmol/L BUN (6-24) mg/dL Creatinine (0.51-0.95) mg/dL Est GFR ( Amer) (>60) Est GFR (Non-Af Amer) (>60) BUN/Creatinine Ratio (8-20) Glucose (70-100) mg/dL Calcium (8.6-10.3) mg/dL Total Bilirubin (0.2-1.0) mg/dL AST (13-39) U/L ALT (7-52) U/L Alkaline Phosphatase (34-104) U/L Troponin I (<0.04) ng/mL Total Protein (6.4-8.9) g/dL Albumin (3.2-5.2) g/dL Globulin (2-4) g/dL Albumin/Globulin Ratio (1-3) Lipase (11.0-82.0) U/L Urine Color Yellow Urine Appearance Clear Urine pH 6.0 (5-9) Ur Specific [place] 1.014 (1.010-1.030) Urine Protein Negative (Negative) Urine Ketones Negative (Negative) Urine Blood Negative (Negative) Urine Nitrate Negative (Negative) Urine Bilirubin Negative (Negative) Urine Urobilinogen Negative (Negative) Ur Leukocyte Esterase Negative (Negative) Urine Glucose Negative (Negative) Result Diagrams: 05/29/18 03:25 05/29/18 03:25 Lab Statement: Any lab studies that have been ordered have been reviewed, and results considered in the medical decision making process. - Radiology CXR Xray Interpretation: No Acute Changes Radiology Interpretation Completed By: ED Physician Abd XR Xray Interpretation: No Acute Changes Radiology Interpretation Completed By: ED Physician - CT CT Abd/Pel CT Interpretation Completed By: Radiologist - Suspected diarrheal illness without colonic wall thickening. ED physician reviewed this report. - EKG 0343 Cardiac Rate: NL - 88 bpm EKG Rhythm: Sinus Rhythm EKG Interpretation: No acute changes Re-Evaluation - Re-Evaluation First Eval Re-Evaluation Time: 05:35 Comment: Continues to be nauseous. Second Eval Re-Evaluation Time: 06:29 Comment: Discussed results. Pt does not want to stay in the ED so she will be discharged. Abdominal Pain Fem Course/Dx - Course Course Of Treatment: Pt is a 62 y/o F who presents to ED c/o cramping, moderate abdominal pain with N/V/D since 2300. Additionally c/o DOWNS. Denies fever, CP, SOB. Reports that she has eaten the same food as her who is not currently ill. CXR and Abd XR reveal no acute findings. EKG is sinus rhythm with no acute changes. CT Abd/Pel impression is suspected diarrheal illness without colonic wall thickening. Blood work was done with results including a WBC of 9.2, INR of 1.03, and lipase of 85. UA was negative for UTI. In the ED course, pt received Tylenol, Reglan, Zofran, and fluids. She does not want to stay in the hospital. Will be discharged with Dx of gastroenteritis with Rx for Zofran and follow up with her PCP. Pt is agreeable with this plan. Allergies noted. - Diagnoses Differential Diagnosis: Positive: Diverticulitis, Pancreatitis, Renal Colic, Urinary Tract Infection, Other - GE Provider Diagnoses: Gastroenteritis Discharge - Sign-Out/Discharge Documenting (check all that apply): Discharge/Admit/Transfer - Discharge - Discharge Plan Condition: Stable Disposition: HOME Prescriptions: Ondansetron ODT TAB* [Zofran 4 MG Odt TAB*] 4 mg PO Q8H PRN #20 tab.odt MDD 3 PRN Reason: Vomiting Patient Education Materials: Gastroenteritis (ED) Referrals: Bob Ross MD [Primary Care Provider] - 3 Days Additional Instructions: RETURN TO ED FOR ANY NEW OR WORSENING SYMPTOMS. - Billing Disposition and Condition Condition: STABLE Disposition: Home The documentation as recorded by the Al moser Rebecca accurately reflects the service I personally performed and the decisions made by Sharmila patel Emmanuel.
[2018-05-29 08:25] VITALS: BP 115/78
--- NOTE | 2018-05-29 08:50 | RAD ---
Indication: Vomiting. Single view of the chest with dual energy PA views demonstrates no mediastinal shift. Heart is of normal size and configuration. Lung franco are clear. When compared to previous exam of February 22, 2017 no significant change is noted. IMPRESSION: No active cardiopulmonary disease is noted.
--- NOTE | 2018-05-29 08:51 | RAD ---
Indication: Vomiting. Flat plate of the abdomen demonstrates no free air. Small amount of air is in the right colon. Small amount of air is noted in the stomach. No dilated loops of small bowel are noted. No organomegaly is noted. Psoas margins are otherwise unremarkable. Tiny calcification overlying the right psoas margin of uncertain etiology. Likely tablets are noted in the stomach. IMPRESSION: Unremarkable abdomen film.
--- NOTE | 2018-05-29 09:28 | RAD ---
Indication: Pancreatitis. Contrast: Administered 97.0 ml of OMNIPAQUE 300 mg/ml CT of the abdomen and pelvis after IV contrast administration. Coronal and sagittal reconstructed images were obtained. Lung bases demonstrate no pleural fluid, nodules or masses. Heart is size without evidence of pericardial effusion. Liver is normal in size no focal lesions or intrahepatic duct dilatation. Gallbladder demonstrates no calcified gallstones, pericholecystic fluid or wall thickening. The spleen is normal in size. The pancreas demonstrates no mass or pancreatic duct dilatation. No adrenal lesions are noted. Kidneys demonstrate symmetric nephrograms without hydronephrosis. No focal masses are noted in the kidney. Stomach the stomach is filled with fluid. The proximal small bowel demonstrates mild distention. The appendix is visualized and is normal. There may be some mucosal thickening of the descending and sigmoid colon suggestive of colitis. No retroperitoneal lymphadenopathy is noted. No free fluid is noted. Fluid is noted in the rectum. The uterus and ovaries are grossly unremarkable. No pelvic adenopathy is noted. IMPRESSION: Fluid is noted in the rectum. There is some mild mucosal thickening transverse colon and descending colon. No definite masses or other fluid collections are noted.
== END 2018-05-29 09:32 | disposition home or self-care (01) ==
LOC: ED 02:43
DX: K52.9 Noninfective gastroenteritis and colitis, unspecified (principal); E07.9 Disorder of thyroid, unspecified; J45.909 Unspecified asthma, uncomplicated; K85.90 Acute pancreatitis without necrosis or infection, unspecified
CPT/HCPCS: 36415; 71045; 74018; 74177; 80053; 81003; 83690; 84484; 85025; 85610; 85730; 93005; 96360; 96374; 96375; 99283; A9270-GY; J2405; J2765; Q9967

== ENCOUNTER 2024-06-11 09:53 | Observation (INO) ==
[2024-06-11 10:19] LABS: ABS Eosinophils 0.1 10^3/uL (0.0-0.5); ABS Lymphocytes 1.6 10^3/uL (1.0-4.8); ABS Monocytes 0.6 10^3/uL (0.0-0.9); ABS Neutrophils 4.4 10^3/uL (1.5-7.6); Eosinophil % 1.5 %; Hemoglobin 12.1 g/dL (11.5-14.3); Lymphocyte % 23.4 %; Mean Corpuscular Hemoglobin 29.5 pg (27-33); Mean Corpuscular Hgb Conc 32.7 g/dL (31-36); Mean Corpuscular Volume 90.4 fL (80-97); Mean Platelet Volume 8.2 fL (7.5-11.2); Nucleated Red Blood Cells % 0.1 %/100WBC (0.0-0.8); Platelet Count 290 10^3/uL (150-450); Red Blood Count 4.09 10^6/uL (3.63-4.92); Red Cell Distribution Width 13.6 % (12-17); White Blood Count 6.7 10^3/uL (3.8-11.8)
[2024-06-11] MEDS: Iodixanol (CONTRAST) 320 MG/ML 100 ML SDV IV ONE (10:22)
[2024-06-11 10:25] LABS: Activated Partial Thrombo Time 32.1 seconds (26.0-38.0); INR 1.04 (0.83-1.13)
[2024-06-11] MEDS ORDERED: Sulfur Hexaflouride MICROSPHR 25 MG VIAL IV ONE (10:58)
[2024-06-11 11:00] LABS: Albumin 3.9 g/dL (3.2-5.2); Albumin/Globulin Ratio 1.8 (1-3); Calcium 8.7 mg/dL (8.6-10.3); Creatinine, Serum 0.82 mg/dL (0.51-0.95); Direct Bilirubin 0.1 mg/dL (0.03-0.18); Globulin 2.2 g/dL (2-4); HDL Cholesterol 71.2 mg/dL; Indirect Bilirubin 0.4 mg/dL (0.3-1.0); Potassium 3.6 mmol/L (3.5-5.0); Total Bilirubin 0.5 mg/dL (0.2-1.0); Total Protein 6.1 g/dL (6.4-8.9); eGFR CKD-EPI 78.8 (>60)
[2024-06-11 11:30] LABS: Urine Appearance Clear; Urine Bilirubin Negative (Negative); Urine Blood Negative (Negative); Urine Color Colorless; Urine Glucose Negative (Negative); Urine Ketones Negative (Negative); Urine Nitrite Negative (Negative); Urine Protein Negative (Negative); Urine Specific Gravity 1.024 (1.002-1.030); Urine Urobilinogen Negative (Negative)
[2024-06-11 19:33] LABS: TSH Ultra Thyroid Stim Horm 0.48 mcIU/mL (0.34-5.60)
[2024-06-11] MEDS: Mometasone/Formoter 200/5 MDI INH SCH (21:13)
[2024-06-12] MEDS: SPIRIVA Respimat (tiotropium) 2.5 mcg/inh Inhaler INH SCH (09:20)
[2024-06-12] MEDS: Multivitamins/Minerals TAB PO SCH (10:55)
[2024-06-12 11:58] VITALS: BP 123/67
[2024-06-12] MEDS ORDERED: Potassium Chlor 10 meq TAB PO SCH (21:00)
== END 2024-06-12 13:20 | disposition home or self-care (01) ==
LOC: ED 09:53 → EDHOLD 09:53 → MEDTELE 06-12 07:19
PROVIDERS: ADMIT Hospitalist; ATTEND Hospitalist